=== PATIENT | male | born 1975 | race Hispanic/Latino ===

== ENCOUNTER 2017-08-14 13:52 | Emergency (ER) | payer SELFPAY ==
[~2017-08-14] VITALS: Ht 165.1 cm; Wt 81.8 kg
[~2017-08-14 13:52] MED LIST: CEPHALEXIN500 MG OR; LORTAB5 OR; no meds
[2017-08-14 14:24] VITALS: BP 129/90
== END 2017-08-14 14:25 | disposition home or self-care (01) | DRG 607 ==
LOC: ED 13:52
DX: L25.9 Unspecified contact dermatitis, unspecified cause (principal); Y92.89 Other specified places as the place of occurrence of the external cause